=== PATIENT | female | born 1990 ===

== ENCOUNTER 2017-08-08 05:32 | Inpatient (IN) | payer MEDICAID, SELFPAY ==
[2017-08-08 06:03] VITALS: BMI 36.6
[2017-08-08] MEDS: Lactated Ringer's 1,000 ML IV SCH ×2 (06:15→07:20)
[2017-08-08] MEDS ORDERED: ceFAZolin IV 2 gm in Dextrose 2 GM/50 ML BAG IVPB ONE (06:19)
[2017-08-08] MEDS ORDERED: Lactated Ringer's 1,000 ML IV SCH (06:30)
[2017-08-08 06:33] LABS: BASO % 0.5 % (0.0-2.0); EOS % 0.7 % (0.0-4.0); HEMOGLOBIN 13.1 g/dL (12.0-16.0); LYMPH # 1.2 K/uL (1.0-4.3); LYMPH % 21.2 % (20.0-40.0); MEAN CELL VOLUME 89.9 fl (81.0-99.0); MEAN CORPUSCULAR HEMOGLOBIN 30.8 pg (27.0-31.0); MEAN CORPUSCULAR HGB CONC 34.3 g/dL (33.0-37.0); MEAN PLATELET VOLUME 9.7 fl (7.2-11.7); MONO # 0.4 K/uL (0.0-0.8); MONO % 6.7 % (0.0-10.0); NEUT # 4.1 K/uL (1.8-7.0); NEUT % 70.9 % (50.0-75.0); NRBC % 0.1 % (0.0-0.0); RBC 4.25 Mil/uL (3.80-5.20); RED CELL DISTRIBUTION WIDTH 14.5 % (11.5-14.5); WHITE BLOOD COUNT 5.8 K/uL (4.8-10.8)
[2017-08-08 06:54] VITALS: TEMP 98.1
[2017-08-08] MEDS ORDERED: Phenylephrine 10 mg/ml Inj ONE (07:28)
[2017-08-08] MEDS ORDERED: ePHEDrine 50 mg/ml Inj ONE (07:30)
[2017-08-08] MEDS ORDERED: Morphine 1 mg/ml preservative-free Inj(Duramorph) ONE (07:31)
--- NOTE | 2017-08-08 08:23 | OBADHP ---
Datetime: 08/08/2017 06:11 Admit Comment, IP Provider: 26 yo preGDM on metformin presents for scheduled repeat c/s. Positive: FM Denies: VB, CTX, LOF ROS: Denies dizzines, headache, blurred vision, CP/SOB/N/V, dysuria. : Dr. Wu; PreGDM obhx: 2017 c/s at 37 wks 2/2 vaginal bleed and placenta previa Pmhx: GDM Famhx: DM Soc: Denies: smoking, etoh, illicit drugs Surg: c/s 2013 NKDA Meds: Metformin 500 qD, PNV PE: Gen: AAOx3 Cardiac: S1 S2 no murmurs Resp: CTA bilaterally Abdo: gravid, nontender, active bowel sounds CVA negative for tenderness No calf tenderness 26 yo preGDM on metformin presents for repeat c/s. IUP, EGA 39.2 -Admit for scheduled repeat c/s -Labs: CBC, type and screen -NPO, IVF, Ancef 1 g IV, SCD, catheter insertion, HIV: NEG; HBSAG: NEG; GBS: NEG; RUBELLA: IM; GC: NEG; C: NEG; RPR: NEG; ABO: O+; AB NEG; PPD: HX + CXR: 06/21 NEG; TDAP: 05/31/2017 Case d/w Dr. Juan Sousa MD PGY1 Agree with above H+P. Patient seen and examined by me. Pelvic Type - PN: Not Done Extremities - PN: Normal Abdomen - PN: Normal Back - PN: Normal Breast - PN: Not Done Lungs - PN: Normal Heart - PN: Normal Thyroid - PN: Not Done Neurologic - PN: Normal HEENT - PN: Normal General - PN: Normal FHR - Baseline A Provider: 130 Vital Signs Provider: Reviewed; Within Normal Limits IP Chief Complaint: Scheduled Section NICHD Variability Prov Fetus A: Moderate 6-25bpm NICHD Accel Fetus A IP Provider: [id number] FHR Category Provider Fetus A: Category I NICHD Decel Fetus A IP Provider: None Genitourinary Exam: Not Done DTRs - PN: Not Done IP Adm Impression: Term, intrauterine IP Admit Plan: Initiate Section protocol
[2017-08-08] MEDS ORDERED: Oxycodone/Acetaminophen 5/325 mg Tab PO PRN (10:20)
[2017-08-08] MEDS ORDERED: DiphenhydrAMINE 50 mg/ml Inj IVP PRN ×2 (10:20→15:22)
[2017-08-08] MEDS ORDERED: Naloxone 0.4 mg/ml Inj (Adult) IVP PRN (10:20)
[2017-08-08] MEDS ORDERED: Sodium Chloride 0.9% 1,000 ML IV SCH (10:30)
[2017-08-08] MEDS: Oxycodone/Acetaminophen 5/325 mg Tab PO PRN (22:04)
[2017-08-09 06:43] LABS: BASO % 0.3 % (0.0-2.0); EOS % 0.3 % (0.0-4.0); HEMOGLOBIN 11.6 g/dL (12.0-16.0); LYMPH % 15.3 % (20.0-40.0); MEAN CELL VOLUME 90.2 fl (81.0-99.0); MEAN CORPUSCULAR HEMOGLOBIN 30.9 pg (27.0-31.0); MEAN CORPUSCULAR HGB CONC 34.2 g/dL (33.0-37.0); MEAN PLATELET VOLUME 9.4 fl (7.2-11.7); MONO # 0.4 K/uL (0.0-0.8); NEUT # 5.3 K/uL (1.8-7.0); NEUT % 78.1 % (50.0-75.0); RBC 3.77 Mil/uL (3.80-5.20); RED CELL DISTRIBUTION WIDTH 14.8 % (11.5-14.5); WHITE BLOOD COUNT 6.8 K/uL (4.8-10.8)
[2017-08-09] MEDS: Oxycodone/Acetaminophen 5/325 mg Tab PO PRN ×2 (09:35→15:16)
--- NOTE | 2017-08-09 11:00 | OBPPN ---
Datetime: 08/09/2017 07:30 PP Pain Prov: Within normal limits PP Nausea Prov: Denies PP Flatus Prov: Yes PP BM Prov: No PP Breasts Prov: Not Done PP Heart Prov: Normal PP Lungs Prov: Normal PP Abdomen/Uterus Prov: Normal PP Lochia Prov: Normal PP Vulva/Perineum Prov: Not Done PP CVA Tenderness Prov: Normal PP Extremities Prov: Normal PP C/S Incision Prov: Normal PP Progress Prov: Normal PP Impression Prov: Normal progression PP Plan Prov: Continue present management PP Progress Note Prov: POD 1 S: 26 yo s/p on 08/08/2017. Pt. is seen and examined at bedside this AM. No over night events. Pt reports mild abdominal pain, but well controlled with pain meds. D/c patrick, dressing removed, incision site healing well, no exudate seen, dry and intact. No nausea, advised to advance diet as tolerated. Breast feeding without difficulty. Lochia is similar to menses volume. No bowel mo vement, but passing gas per rectum. Denies fever/chills, diarrhea, nausea/vomiting, chest pain, dyspn ea, and dizziness. O: VS: stable GEN: NAD Cardio: S1S2, no murmurs Lungs: clear breath sounds b/l, no wheezing Abdomen: BS+, tenderness to palpation. Incision scar noted, well healing with no exudate seen, dry and intact. Uterus is firm and at the level of the umbilicus. EXT: No edema, calves nontender NEURO/PSYCH: AAOx3, no grossly focal deficits, preserved affect and mood. Assessment/Plan: 26 yo s/p on 08/08/2017. Pt remains afebrile, tolerating pain w ith medication, doing well on POD#1. OOB with caution SCDs for DVT prophylaxis, encouraged ambulating Percocet 5/325mg, and Motrin 600mg for pain. Encourage and ambulating f/u CBC post op: 11.6/34.0 Anticipated d/c to home, 08/11/2017. Case dw OB attending --- Kevin Sousa MD PGY-1 [facility] The patient was seen with the resident I agree with the notes IP PP Procedures: None Vital Signs Provider PP: Reviewed; Within Normal Limits
--- NOTE | 2017-08-09 20:25 | OBDS ---
DELIVERY PERSONNEL Delivery Doctor: Dereje Wu MD Scrub Nurse: Judy Shannon OBT Programming Instructor: Lisa Davies RN/Shreyas Rocha RN Anesthesiologist: Junito Worthy MD MATERNAL INFORMATION Delivery Anesthesia: Spinal Medications in Delivery: Pitocin 30 units in 500ml LR Estimated Blood Loss (ml): 800 Placenta Cultured: No Maternal Complications: None Provider Comments: See Operative Report LABOR SUMMARY EDC: 08/13/2017 00:00 No. Babies in Womb: 1 LABOR INFORMATION Group B Beta Strep: Negative Steroids Given: None Reason Steroids Not Administered: Not Applicable MEMBRANES Membranes Rupture Method: Artificial Rupture of Membranes: 08/08/2017 09:23 Length of Rupture (hrs): 0.00 Amniotic Fluid Color: Clear Amniotic Fluid Amount: Moderate Amniotic Fluid Odor: Normal STAGES OF LABOR Stage 3 hrs: 0 Stage 3 min: 1 CSECTION DELIVERY Primary Indication: Repeat Elective Secondary Indication: Repeat Elective CSection Urgency: Elective CSection Incidence: Repeat Labor: N/A Elective: N/A CSection Incision: Lower Uterine Transverse BABY A INFORMATION Infant Delivery Date/Time: 08/08/2017 09:23 Method of Delivery: Born in Route : No : N/A Forceps: N/A Vacuum Extraction: Successful Shoulder Dystocia : No ASSISTED DELIVERY BABY A Indication for Assisted Delivery: See Dr Wu's notes Vacuum Number of Pulls: 1 Vacuum Number of PopOffs: 0 Reduce Pressure btwn Ctx: No Vacuum Change Management Facilitator: kiwi Total Time Vacuum Applied: less than 10 seconds SHOULDER DYSTOCIA BABY A Delivery Date/Time: 08/08/2017 09:23 PRESENTATION/POSITION BABY A Presentation: Cephalic Cephalic Presentation: Vertex Breech Presentation: N/A PLACENTA INFORMATION BABY A Placenta Delivery Time : 08/08/2017 09:24 Placenta Method of Delivery: Manual Removal Placenta Status: Delivered SCORES BABY A Heart Rate 1 min: >100 bpm Resp Effort 1 min: Good Cry Reflex Irritability 1 min: Cough or Sneeze or Pulls Away Muscle Tone 1 min: Active Motion Color 1 min: Body Free Soil, Extremities Blue Resuscitation Effort 1 min: Tactile Stimulation SCORE 1 MIN: 9 Heart Rate 5 min: >100 bpm Resp Effort 5 min: Good Cry Reflex Irritability 5 min: Cough or Sneeze or Pulls Away Muscle Tone 5 min: Active Motion Color 5 min: Body Free Soil, Extremities Blue Resuscitation Effort 5 min: N/A SCORE 5 MIN: 9 INFORMATION BABY A Gestational Age at Delivery: 39.2 Gestational Status: Term Outcome : Liveborn Condition : Stable Sex: Male IDENTIFICATION/MEDS BABY A ID Band Number: [id number] ID Band Location: Left Leg; Left Arm Vitamin K Given : Not Given Erythromycin Given: Not Given WEIGHT/LENGTH BABY A Infant Birthweight (gms): 3360 Infant Weight (lb): 7 Infant Weight (oz): 6 CORD INFORMATION BABY A No. Cord Vessels: 3 Nuchal Cord : N/A True Knot: 0 Cord Blood Taken: Yes Infant Suction: Mouth; Nose ASSESSMENT BABY A Complications: None Physical Findings at Delivery: Within Normal Limits Respirations: Appears Normal Learning Strategist/ALS Called : No Care By: Dr Keila Castorena RN Transferred To: Remains with Mother
--- NOTE | 2017-08-10 00:06 | OP ---
PROCEDURE DATE: 08/08/2017 PREOPERATIVE DIAGNOSES: Term with previous section and gestational diabetes. POSTOPERATIVE DIAGNOSES: Term with previous section and gestational diabetes, delivered. PROCEDURE: Repeat low-transverse section. SURGEON: Ashlee Baig MD POLYMERIZATION KETTLE OPERATOR: Reese Garduno MD ESTIMATED BLOOD LOSS: 800 mL. URINE OUTPUT: 1300 mL, clear at the end of the procedure. INTRAVENOUS FLUIDS: 1600 mL lactated Ringer's. CLOSURE: [place]. COMPLICATIONS: None. FINDINGS: A live male with Apgars of 9 and 9, weight of 7 pounds 7 ounces, delivered in vertex presentation, amniotic fluid clear. Adhesions of the uterus to the anterior abdominal wall were noted and these were taken down. Grossly normal tubes and ovaries were noted. DESCRIPTION OF PROCEDURE: The patient was taken to the operating room and given spinal anesthesia without difficulty. She was then prepped and draped in the normal sterile fashion. A Pfannenstiel skin incision was then made with the scalpel through the previous scar and carried to the underlying fascia with the Bovie. The fascia was incised in the midline and extended laterally with the Bovie. The inferior aspect of the fascial incision was then grasped with Ramon clamps, elevated, and the underlying rectus muscles were dissected off with the Bovie then bluntly. Attention was then turned to the superior aspect of the fascial incision, which in a similar fashion was dissected off with the Bovie. The peritoneum was identified and entered bluntly. This incision was then extended laterally, superiorly and inferiorly paying close attention to the bladder. At this time, adhesions of the uterus were then noted and these were meticulously taken down. Good hemostasis was noted. The bladder blade was then inserted and the vesicouterine peritoneum was identified, tented up and entered with Metzenbaum scissors. This incision was extended laterally and a bladder flap was created digitally. The bladder blade was reinserted and the lower uterine segment was incised in a transverse fashion with the scalpel. This incision was then extended bluntly cephalocaudally and the was then delivered using vacuum assistance for about 5 seconds with no popoff atraumatically. The nose was the abdomen. The cord was doubly clamped and cut, and the was handed off to the awaiting laundry assistant. Cord blood was then taken. The placenta was extracted spontaneously and intact. The uterus was exteriorized and cleared off all clots and debris. The uterine incision was then closed with 1-0 Vicryl in a running locking fashion and a second layer was then placed for imbrication and good hemostasis was noted. Copious irrigation was performed. The uterus was returned to the abdomen. The gutters were cleared off all clots. The inspection of the uterine incision again revealed good hemostasis. The peritoneum was then reapproximated with 2-0 Vicryl in a running fashion and 3 further horizontal mattress sutures were then placed in the muscle using same suture for reapproximation. Good hemostasis was again noted. The fascia was reapproximated with 0 Vicryl in a running fashion bilaterally to the midline. The subcutaneous fat layer was reapproximated with 3-0 plain suture with 4 interrupted stitches and the incision was closed with bibi and covered with the sterile dressing. The patient tolerated the procedure well. Sponge, lap, and needle counts were all correct x4. Ancef 2 grams were given preoperatively. The patient was then taken to the recovery room in stable condition. There was no injury to the bladder, bowel, ureter or baby. Due to the nature of this case, an occupational therapist assistants was requested and my occupational therapist assistants Dr. Garduno was present for the entire procedure from the initial incision to the patient's transfer to the recovery room. He assisted with entry into the abdominal cavity with delivery of the baby, closure of the uterus and all layers of the abdominal wall and taking down the adhesions. He provided great exposure to minimize blood loss and to ensure good hemostasis. His assistance was vital to perform this procedure. Ashlee Baig MD
[2017-08-10] MEDS: Oxycodone/Acetaminophen 5/325 mg Tab PO PRN (09:47)
--- NOTE | 2017-08-10 20:38 | OBPPN ---
Datetime: 08/10/2017 06:30 PP Pain Prov: Within normal limits PP Nausea Prov: Denies PP Flatus Prov: Yes PP BM Prov: No PP Breasts Prov: Not Done PP Heart Prov: Normal PP Lungs Prov: Normal PP Abdomen/Uterus Prov: Normal PP Lochia Prov: Normal PP Vulva/Perineum Prov: Not Done PP CVA Tenderness Prov: Normal PP Extremities Prov: Normal PP C/S Incision Prov: Normal PP Progress Prov: Normal PP Impression Prov: Normal progression PP Plan Prov: Continue present management PP Progress Note Prov: POD 2 S: 26 yo s/p on 08/08/2017. Pt. is seen and examined at bedside this AM. No over night events. Pt reports mild abdominal pain, but well controlled with pain meds. D/c patrick, dressing removed, incision site healing well, no exudate seen, dry and intact. No nausea, advised to advance diet as tolerated. Breast feeding without difficulty. Lochia is similar to menses volume. No bowel mo vement, but passing gas per rectum. Denies fever/chills, diarrhea, nausea/vomiting, chest pain, dyspn ea, and dizziness. O: VS: stable GEN: NAD Cardio: S1S2, no murmurs Lungs: clear breath sounds b/l, no wheezing Abdomen: BS+, tenderness to palpation. Incision scar noted, well healing with no exudate seen, dry and intact. Uterus is firm and at the level of the umbilicus. EXT: No edema, calves nontender NEURO/PSYCH: AAOx3, no grossly focal deficits, preserved affect and mood. Assessment/Plan: 26 yo s/p on 08/08/2017. Pt remains afebrile, tolerating pain w ith medication, doing well on POD#2. OOB with caution SCDs for DVT prophylaxis, encouraged ambulating Percocet 5/325mg and Motrin 600mg for pain. Encourage and ambulating f/u CBC post op: 11.6/34.0 Anticipated d/c to home tomorrow, 08/11/2017. Case dw OB attending --- Kevin Sousa MD PGY-1 Patient seen and evaluated by me this am. Agree with above resident today. continue postop managem ent. -Dr. Wu IP PP Procedures: None Vital Signs Provider PP: Reviewed; Within Normal Limits
[2017-08-11] MEDS ORDERED: Lactated Ringer's 1,000 ML IV SCH (10:15)
--- NOTE | 2017-08-11 14:56 | OBDCSUM ---
Datetime: 08/11/2017 07:36 Discharged to, Provider: Home Follow up at, Provider: Dr Osuna Disch Instr Activity: July Shower Disch Instr Diet: Regular Discharge Instructions, Provider: Routine instructions given Discharge Diagnosis, Provider: Term Delivered Discharge Time: 08/11/2017 10:00 Follow up in weeks, Provider: 1 week, [facility] Disch Referrals: None Contraception discussed, Prov: Yes Disch Activity Restrictions: No exercising; No lifting; Minimize stair-climbing; No sexual activity; Nothing in vagina - [place], tampons, douche Discharge Comment, Provider: DOA: 08/08/2017 EGA: 39.2 Diagnosis: Term Risk factors: none Summary of : 26 yo F L_D summary DOL: 08/08/2017 at 9:23 NB: M : 11/12 Weight: 3360 g PP summary No serious complications during Post-Op. Lochia= menses, mild pain, controlled with medications Rubella immune, Tdap 05/31/2017 Blood type: O+ CBC pp: 11.6/34.0 Discharge Date: 08/11/2017 Time 10:00 AM Discharge Instructions: -encourage -percocet/Ibuprofen for pain PRN -Ambulate as tolerated -f/u NB visit 3-7 days w/ bradley linebacker crewmember and PP visit 6 weeks with OB; Wound care 4-7 days Case d/w OB attending Iglesia PGY 1 Contraception after Delivery: Undecided
--- NOTE | 2017-08-11 14:57 | OBPPN ---
Datetime: 08/11/2017 07:30 PP Pain Prov: Within normal limits PP Nausea Prov: Denies PP Flatus Prov: Yes PP BM Prov: Yes PP Breasts Prov: Normal PP Heart Prov: Normal PP Lungs Prov: Normal PP Abdomen/Uterus Prov: Normal PP Lochia Prov: Normal PP Vulva/Perineum Prov: Not Done PP CVA Tenderness Prov: Normal PP Extremities Prov: Normal PP C/S Incision Prov: Normal PP Progress Prov: Normal PP Comments Phys Exam Prov: pfannensteil incision: c/d/i PP Impression Prov: Normal progression PP Plan Prov: Discharge PP Progress Note Prov: POD 3 S: 26 yo s/p on 08/08/2017. Pt. is seen and examined at bedside this AM. No over night events. Pt reports mild abdominal pain well controlled with pain meds. Incision site healing we ll, no exudate seen, dry and intact. Breast feeding and bottle without difficulty. Lochia is similar to menses volume. + bowel movement and passing gas per rectum. Denies fever/chills, diarrhea, nausea /vomiting, chest pain, dyspnea, and dizziness. O: VS: stable GEN: NAD Cardio: S1S2, no murmurs Lungs: clear breath sounds b/l, no wheezing Abdomen: BS+, tenderness to palpation. Incision scar noted, well healing with no exudate seen, dry and intact. Uterus is firm and at the level of the umbilicus. EXT: No edema, calves nontender NEURO/PSYCH: AAOx3, no grossly focal deficits, preserved affect and mood. Assessment/Plan: 26 yo s/p on 08/08/2017. Pt remains afebrile, tolerating pain w ith medication, doing well on POD#3. OOB with caution SCDs for DVT prophylaxis, encouraged ambulating Percocet 5/325mg and Motrin 600mg for pain. Encourage and ambulating f/u CBC post op: 11.6/34.0 Discharge t home. Case dw OB attending Iglesia PGY 1 ob attending addendum: pt seen _ examined by me. agree w/ above assessmetn and pln. continure pnv. IP PP Procedures: None Vital Signs Provider PP: Reviewed; Within Normal Limits
[2017-08-11 23:45] VITALS: BP 106/77; PULSE 80; RESP 20; O2SAT 98
== END 2017-08-11 14:50 | disposition home or self-care (01) | DRG 371 ==
LOC: H.L&D 05:32 → H.OB/GYN 13:32
PROVIDERS: ADMIT Obstetrics & Gynecology; ATTEND Obstetrics & Gynecology
PROC: 10D00Z1 Extraction of Products of Conception, Low, Open Approach (ICD-10-PCS; principal; 2017-08-08)
PROC: 4A1HXCZ Monitoring of Products of Conception, Cardiac Rate, External Approach (ICD-10-PCS; 2017-08-08)
DX: O34.211 Maternal care for low transverse scar from previous cesarean delivery (principal); O24.429 Gestational diabetes mellitus in childbirth, unspecified control; N85.8 Other specified noninflammatory disorders of uterus; Z3A.39 39 weeks gestation of pregnancy; Z37.0 Single live birth; N73.6 Female pelvic peritoneal adhesions (postinfective); O99.89 Other specified diseases and conditions complicating pregnancy, childbirth and the puerperium